=== PATIENT | female | born 1980 | race Caucasian/White ===

== ENCOUNTER 2024-03-18 11:16 | Emergency (ER) | payer BC ==
[2024-03-18] MEDS: Lidocaine 1% 10 ML MDV INJECT ONE (11:51)
[2024-03-18] MEDS: Lidocaine/Epineph/Tetracaine 3 ML Syringe TOP ONE (11:51)
[2024-03-18 12:24] LABS: BASOPHILS ABSOLUTE AUTO 0.1 K/mm3 (0.0-0.2); BASOPHILS PERCENT AUTO 0.6 % (0.0-1.0); EOSINOPHILS PERCENT AUTO 0.5 % (0.0-6.0); HEMATOCRIT 36.1 % (37.0-47.0); HEMOGLOBIN 11.6 gm/dl (12.0-16.0); IMMATURE GRAN ABSOLUTE AUTO 0.02 K/mm3 (0.00-0.05); IMMATURE GRAN PERCENT AUTO 0.3 % (0.0-0.4); LYMPHOCYTES PERCENT AUTO 12.9 % (24.0-44.0); MEAN CORPUSCULAR HGB CONC 32.1 g/dl (32.0-36.0); MEAN CORPUSCULAR VOLUME 102.8 fl (83.0-99.0); MEAN PLATELET VOLUME 9.6 fl (9.4-12.3); MONOCYTES ABSOLUTE AUTO 0.6 K/mm3 (0.0-0.8); MONOCYTES PERCENT AUTO 7.3 % (0.0-8.0); NEUTROPHILS ABSOLUTE AUTO 6.1 K/mm3 (1.8-7.7); NEUTROPHILS PERCENT AUTO 78.4 % (41.0-71.0); PLATELET COUNT,PLT 310 K/mm3 (150-400); RED BLOOD CELL COUNT 3.51 M/mm3 (4.10-5.30); WHITE BLOOD CELL COUNT,WBC 7.78 K/mm3 (3.9-11.3)
[2024-03-18 12:48] LABS: ALBUMIN 3.4 g/dl (3.4-5.0); BILIRUBIN TOTAL 0.4 mg/dL (0.2-1.0); BUN/CREATININE RATIO 14.3 (14-18); CALCIUM 8.5 mg/dL (8.5-10.1); CREATININE 0.7 mg/dL (0.55-1.02); EST CRCL DRUG DOSING (CG) 72.9 mL/min; PROTEIN TOTAL,TP 6.7 g/dl (6.4-8.2)
== END 2024-03-18 13:41 | disposition home or self-care (01) ==
LOC: JD.ED 11:16
DX: L02.31 Cutaneous abscess of buttock (principal); F17.210 Nicotine dependence, cigarettes, uncomplicated; Z86.16 Personal history of COVID-19; Z79.899 Other long term (current) drug therapy
CPT/HCPCS: 10060; 36415; 80053; 85025; 99283; A9270; J3490